=== PATIENT | male | born 1980 | race Caucasian/White ===

== ENCOUNTER 2018-02-06 07:55 | Day surgery (SDC) | payer OTHER ==
[~2018-02-06] VITALS: Ht 190.5 cm; Wt 95.0 kg
[2018-02-06] MEDS ORDERED: SODIUM CHLORIDE 0.9% 1,000 ML IV ONE ×2 (08:18→10:07)
[2018-02-06] MEDS ORDERED: SODIUM CHLORIDE FLUSH 10ML SYR IVF ONE (08:30)
[2018-02-06] MEDS ORDERED: ONDANSETRON 2MG/ML, 2ML IVPush ONE (08:30)
[2018-02-06] MEDS ORDERED: HYDROmorphone 2 MG/ML, 1ML IVPush PRN ×2 (08:30→10:30)
[2018-02-06] MEDS ORDERED: HYDROmorphone 2 MG/ML, 1ML ONE (08:34)
[2018-02-06] MEDS ORDERED: ONDANSETRON 2MG/ML, 2ML ONE ×2 (08:34→14:39)
[2018-02-06 08:45] LABS: BASOPHILS % (AUTO) 0 % (0-1); EOSINOPHILS # (AUTO) 0.01 x10^3/uL (0-0.4); EOSINOPHILS % (AUTO) 0 % (1-7); LYMPHOCYTES # (AUTO) 0.97 x10^3/uL (1-3.4); LYMPHOCYTES % (AUTO) 7 % (22-44); MD NO; MEAN CORPUSCULAR HEMOGLOBIN 29.9 pg (27.5-34.5); MEAN CORPUSCULAR HGB CONC 34.3 g/dL (33.2-36.2); MEAN CORPUSCULAR VOLUME 87.2 fL (81-97); MEAN PLATELET VOLUME 9.2 fL (7.4-10.4); MONOCYTES # (AUTO) 1.08 x10^3/uL (0.2-0.8); MONOCYTES % (AUTO) 8 % (2-9); NEUTROPHILS # (AUTO) 11.31 x10^3/uL (1.8-6.8); NEUTROPHILS % (AUTO) 85 % (42-75); PLATELET COUNT 180 x10^3/uL (130-400); RED BLOOD COUNT 5.28 x10^6/uL (4.38-5.82); RED CELL DISTRIBUTION WIDTH 12.7 % (9.4-14.8)
[2018-02-06 08:58] LABS: ALANINE AMINOTRANSFERASE 31 U/L (12-78); ALBUMIN 4.2 g/dL (3.4-5.0); ANION GAP 10 mmol/L (5-15); CALCIUM 9.1 mg/dL (8.5-10.1); CHLORIDE 108 mmol/L (98-107); CREATININE 0.93 mg/dL (0.7-1.3)
[2018-02-06 09:00] LABS: ALKALINE PHOSPHATASE 75 U/L (45-117); BILIRUBIN,TOTAL 0.9 mg/dL (0.2-1.0); TOTAL PROTEIN 8.3 g/dL (6.4-8.2)
[2018-02-06] MEDS ORDERED: OMNIPAQUE 350 MG/ML, 100ML BOTTLE ONE (09:16)
[2018-02-06] MEDS ORDERED: CEFOTETAN PMX 1GM/50ML 50 ML ONE (09:36)
[2018-02-06 09:59] LABS: CULTURE INDICATED? NO; MICROSCOPIC AUTO
[2018-02-06] MEDS ORDERED: CEFOTETAN PMX 1GM/50ML 50 ML IV ONE (10:00)
[2018-02-06] MEDS ORDERED: SODIUM CHLORIDE FLUSH 10ML SYR IVF PRN (10:30)
[2018-02-06] MEDS ORDERED: ONDANSETRON 2MG/ML, 2ML IVPush PRN ×2 (10:30→16:00)
[2018-02-06] MEDS ORDERED: BUPIVACAINE/PF-EPI 0.5% 1:200K ONE (10:36)
[2018-02-06] MEDS ORDERED: RISP0.253 PO (11:36)
[2018-02-06] MEDS ORDERED: LAMO25TB7 PO (11:36)
[2018-02-06 12:40] VITALS: BP 124/71
[2018-02-06 13:23] VITALS: BP 124/71
[2018-02-06] MEDS ORDERED: MIDAZOLAM 1 MG/ML, 2ML ONE (13:27)
[2018-02-06] MEDS ORDERED: FENTANYL PF 250 MCG/5ML ONE (13:27)
[2018-02-06] MEDS ORDERED: hydrALAzine 20 MG/ML, 1ML IV PRN (13:30)
[2018-02-06] MEDS ORDERED: ACETAMINOPHEN 325 MG TABLET PO PRN (13:30)
[2018-02-06] MEDS ORDERED: HYDROmorphone 1 MG/ML, 1ML IV PRN (13:30)
[2018-02-06] MEDS ORDERED: MEPERIDINE/PF 25MG/0.5ML IVPush PRN (13:30)
[2018-02-06] MEDS ORDERED: ONDANSETRON 2MG/ML, 2ML IV PRN (13:30)
[2018-02-06] MEDS ORDERED: FENTANYL PF 100 MCG/2ML IV PRN (13:30)
[2018-02-06] MEDS ORDERED: PROMETHAZINE 25 MG/ML, 1ML IV PRN (13:30)
[2018-02-06] MEDS ORDERED: OXYcodone 5 MG/5 ML ORAL.SOL UDC PO PRN (13:30)
[2018-02-06] MEDS ORDERED: LABETALOL 5MG/ML, 20ML IV PRN (13:30)
[2018-02-06] MEDS ORDERED: ROCURONIUM 10MG/ML,5ML ONE (14:14)
[2018-02-06] MEDS ORDERED: PROPOFOL 10 MG/ML, 20ML ONE (14:14)
[2018-02-06] MEDS ORDERED: DEXAMETHASONE 4 MG/ML, 1ML ONE ×2 (14:29)
[2018-02-06] MEDS ORDERED: KETOROLAC 30 MG/1 ML ONE (14:35)
[2018-02-06] MEDS ORDERED: OXYcodone 5 MG/5 ML ORAL.SOL UDC ONE (15:12)
[2018-02-06] MEDS ORDERED: MORPHINE SULFATE 4 MG/ML, 1ML IVPush PRN (16:00)
[2018-02-06] MEDS ORDERED: LACTATED RINGERS 1,000 ML IV SCH (16:00)
[2018-02-06] MEDS ORDERED: HYDROmorphone 2 MG/ML, 1ML IV PRN (16:00)
[2018-02-06] MEDS ORDERED: OXYcodone/APAP 5/325MG TABLET PO PRN (16:00)
[2018-02-06] MEDS ORDERED: HYDROcodone/APAP 5/325 TABLET PO PRN (16:00)
[2018-02-06] MEDS ORDERED: CEPH-368 PO (16:54)
[2018-02-06] MEDS ORDERED: HYDR-3240 PO (16:54)
[2018-02-06 17:43] VITALS: BP 122/71
== END 2018-02-06 18:48 | disposition home or self-care (01) ==
LOC: ED 09:55 → UNDOADMIN 10:07 → EDIP 10:07 → OUT 10:10 → 4NOR 12:30 → EDIP 12:30 → OUT 18:48 → UNDODISIN 18:48
PROVIDERS: ATTEND Surgery
DX: K35.80 Unspecified acute appendicitis (principal); F31.9 Bipolar disorder, unspecified; F17.200 Nicotine dependence, unspecified, uncomplicated; J44.9 Chronic obstructive pulmonary disease, unspecified; E78.00 Pure hypercholesterolemia, unspecified; Z82.49 Family history of ischemic heart disease and other diseases of the circulatory system; Z79.899 Other long term (current) drug therapy; Z98.890 Other specified postprocedural states
CPT/HCPCS: 36415; 44970; 74177; 80053; 81001; 83690; 85025; 88304; 96374; 96375; 99285; J1100; J1170; J1885; J2250; J2405; J2704; J3010; J7030; Q9967; S0074; G0378

== ENCOUNTER 2018-11-27 12:26 | Outpatient (CLI) | payer OTHER ==
[~2018-11-27 12:26] MED LIST: CEPH-368 PO; HYDR-3240 PO; LAMO25TB7 PO; RISP0.253 PO
[2018-11-27] MEDS ORDERED: SINCALIDE (KINEVAC) 5 MCG ONE (13:50)
== END 2018-11-27 23:59 | disposition home or self-care (01) ==
LOC: RAD 12:26
PROVIDERS: ATTEND Anesthesiology
DX: R10.9 Unspecified abdominal pain (principal)
CPT/HCPCS: 78227; A9537; J2805